=== PATIENT | female | born 1990 | race Caucasian/White ===

== ENCOUNTER → 2019-02-24 12:01 | Outpatient (CLI) | payer OTHER, SELFPAY ==
[2019-02-24 13:19] LABS: Add Manual Diff / Slide Review NO; Basophils Absolute Auto 0 /uL (0-100); Basophils Percent Auto 0.2 % (0-2); Eosinophils Absolute Auto 100 /uL (0-450); Eosinophils Percent Auto 1.2 % (2-4); Hematocrit 41.7 % (36-46); Hemoglobin 14.3 g/dL (12.0-16.0); Lymphocytes Absolute Auto 2100 /uL (1100-4500); Lymphocytes Percent Auto 24.1 % (25-40); Mean Corpuscular HGB Conc 34.2 % (30-36); Mean Corpuscular Hemoglobin 31.8 PG (26-34); Mean Corpuscular Volume 92.8 fL (80-100); Monocytes Absolute Auto 500 /uL (0-900); Monocytes Percent Auto 6.3 % (3-14); Neutrophils Absolute Auto 5900 /uL (1500-7000); Neutrophils Percent Auto 68.2 % (50-75); Platelet Count 274 X10^3/uL (150-400); Red Blood Cell Count 4.49 X10^6/uL (4.0-5.2); Red Cell Distribution Width 12.7 % (11.6-14.8); White Blood Cell Count 8.6 X10^3/uL (4.5-11.0)
[2019-02-24 13:26] LABS: Appearance Urine UA CLEAR; Bilirubin Urine UA NEGATIVE (NEGATIVE); Color Urine UA YELLOW; Glucose Urine UA NEGATIVE (Negative); Ketones Urine UA NEGATIVE (NEGATIVE); Leukocyte Esterase Urine UA TRACE (NEGATIVE); Nitrite Urine UA NEGATIVE (Negative); Occult Blood Urine UA NEGATIVE (Negative); Protein Urine UA NEGATIVE (Negative); Urobilinogen Urine UA 0.2 E.U./dL (0.2); pH Urine UA 5.5 (4.5-8.0)
[2019-02-24 13:49] LABS: Bacteria Urine Few (2-10); RBC Urine 0-1/HPF (0-5/HPF); Squamous Epithelial Cell Urine 1-5 /HPF (0-5/HPF); WBC Urine 1-5/HPF (0-5/HPF)
[2019-02-24 15:11] LABS: Hepatitis B Surface Antigen NEGATIVE s/c (NEGATIVE); Rubella Antibody IgG 52.6 IU/mL (>15)
[2019-02-24 15:30] LABS: HIV 1 and 2 Antibody NEGATIVE (NEGATIVE); Hep C Virus Ab w/Reflex Quant NEGATIVE s/c (NEGATIVE)
[2019-02-26 14:02] LABS: RPR Screen Nonreactive (Nonreactive)
== END ==
PROVIDERS: Visit Provider Obstetrics & Gynecology
DX: Z34.81 Encounter for supervision of other normal pregnancy, first trimester (principal)
CPT/HCPCS: 36415; 80055; 81003; 81015; 86703; 86787; 86803; 86850; 86900; 86901; 87077; 87086

== ENCOUNTER → 2019-04-29 09:14 | Outpatient (CLI) | payer OTHER, SELFPAY ==
--- NOTE | 2019-04-29 09:16 | DI.US.S_ITS ---
PROCEDURE: US OB >= 14 WEEKS FETUS INDICATIONS: ANATOMY SURVEY OUTSIDE/PRIOR DATING DATA: Last menstrual period (LMP): Unknown. LMP-based estimated date of delivery (LARISSA): Unknown. First dating scan (date and location): 02/04/2019. Estimated date of delivery (LARISSA) from first dating scan: 09/13/2019. TECHNIQUE: Real-time scanning was performed of the fetus, with image documentation and biometric measurements. Endovaginal scanning: Not performed COMPARISON: [facility], , OB >= 14 WEEKS FETUS, 03/31/2019, 12:09. FINDINGS: General: A single living intrauterine gestation is present. Presentation: Vertex. Placenta: Placental position is anterior fundal, without previa. Amniotic fluid index: 12.2 cm, normal range is 5-24 cm. heart rate: 149 beats per minute. Maternal cervical canal: 4.4 cm long. Normal lower limit is 2.5 cm. biometrics: Biparietal diameter: 4.4 cm Head circumference: 17 cm Abdominal circumference: 16 cm Femur length: 3.4 cm Estimated gestational age from initial scan: not applicable. Composite gestational age from present scan: 20 weeks and 3/7 days Estimated weight and percentile: 376 gm. 65th percentile. Measurement variability for biometric dating: +/- 7 days from 14 weeks to 15 weeks 6 days gestation, +/- 10 days from 16 weeks to 21 weeks 6 days gestation, +/- 2 weeks from 22 weeks to 27 weeks 6 days gestation, +/- 3 weeks for 28 weeks gestation or later. weight reference: 4500 g or EFW >90/95% is considered macrosomia or large for gestational age. EFW <10% is small for gestational age. EFW 5% or less is considered intra-uterine growth restriction. Anatomic survey: Neuro: Ventricles are non-dilated at less than 10 mm. Cisterna magna is normal at 3-11 mm. Cerebellum is normal in size and morphology. Nuchal skin fold: Normal at less than 6 mm between 14-21 weeks gestational age. Face: Nose and lips, facial profile are normal. Spine: No evidence for spina bifida. Heart: 4-chambered heart is present, with normal ventricular outflow tracts. Diaphragm: Diaphragm is intact. Stomach: Left-sided stomach is present. Kidneys: No hydronephrosis. Normal is less than 5 mm in 2nd trimester, less than 7 mm in 3rd trimester. Cord: 3-vessel cord has orthotopic insertion. Bladder: Normal in size. Extremities: All 4 extremities identified. Other: Maternal ovaries are normal. IMPRESSION: 1. Low living intrauterine at 20 weeks 3/7 days based on today's ultrasound. This is concordant with the first trimester ultrasound. There is expected interval growth. 2. Normal amniotic fluid and placenta. 3. Normal and complete anatomic survey. Dictated by: Wilmer Anders M.D. on 04/29/2019 at 11:02 Approved by: Wilmer Anders M.D. on 04/29/2019 at 11:10
== END ==
PROVIDERS: Visit Provider Obstetrics & Gynecology
DX: Z34.02 Encounter for supervision of normal first pregnancy, second trimester (principal); Z3A.20 20 weeks gestation of pregnancy
CPT/HCPCS: 76811

== ENCOUNTER → 2019-05-27 08:38 | Outpatient (CLI) | payer OTHER, SELFPAY ==
[2019-05-27 10:47] LABS: Hematocrit 35.9 % (36-46); Hemoglobin 12.4 g/dL (12.0-16.0)
[2019-05-27 11:31] LABS: GTT (PREG) 1 Hour PP 50gm Dose 101 mg/dL (76-139)
== END ==
PROVIDERS: Visit Provider Obstetrics & Gynecology
DX: Z34.82 Encounter for supervision of other normal pregnancy, second trimester (principal); Z3A.24 24 weeks gestation of pregnancy
CPT/HCPCS: 36415; 82950; 85014; 85018

== ENCOUNTER → 2019-07-01 12:08 | Outpatient (CLI) | payer OTHER, SELFPAY | PROVIDERS: Visit Provider Obstetrics & Gynecology | DX: R82.90 Unspecified abnormal findings in urine (principal); Z34.83 Encounter for supervision of other normal pregnancy, third trimester; Z3A.29 29 weeks gestation of pregnancy | CPT/HCPCS: 87077; 87086 ==

== ENCOUNTER → 2019-08-19 17:10 | Outpatient (CLI) | payer OTHER, SELFPAY ==
[2019-08-20 14:18] LABS: Strep Grp B PCR POS for Grp B Strep
== END ==
PROVIDERS: Visit Provider Obstetrics & Gynecology
DX: Z34.83 Encounter for supervision of other normal pregnancy, third trimester (principal)
CPT/HCPCS: 87653

== ENCOUNTER 2019-09-20 22:59 | Inpatient (IN) | payer OTHER, SELFPAY ==
[2019-09-20] MEDS: LACTATED RINGERS 1,000 ML 100 ML IV (23:25)
[2019-09-20] MEDS: PENICILLIN G POTASSIUM 5,000,000 UNIT in DEXTROSE 5% IN WATER 250 ML IV (23:47)
--- NOTE | 2019-09-20 23:51 | PM.OBHP.1 ---
OB HPI Date/Time Date of admission: 09/20/19 Date Patient Seen: 09/20/19 Time Patient Seen: 23:52 History of Present Condition Chief complaint: LABOR : 2 Para: 1 Estimated Date of Delivery: 09/13/19 Estimated Gestational Age (weeks): 41 Narrative: Sydney Avina is a 29 year old female 2 para 1 at 41 weeks gestation in active labor History of Present care: good care, initiated at week #, number of visits (12) and pounds weight gain (35) Dating criteria: LMP confirmed by 1st trimester US Ultrasounds: normal 1st trimester US and normal mid trimester US Obstetrical complications: none Medical complications: none Preadmission Labs Blood type: O (+) positive -: Antibody screen: negative, GBS status: positive, HBsAG: negative, HIV: negative and RPR/VDLR: negative -: Chlamydia screen: not detected and Gonorrhea screen: not detected -: Rubella: immune and Varicella: immune HCT: 35.9 HCAB: negative PAP: Normal Urine: No growth 1 hr GTT: 101 Prior (ies) History: 02/14/18 7#12oz 40+5 Evaluation Evaluation Baseline heart rate: 140 Variability: Moderate (11-25) monitor accelerations: Present monitor decelerations: Absent Contraction Frequency (minutes): 3 Uterine Contraction Intensity: Strong/Firm Category of Tracing: I Cervical dilation (cm): 9 Cervical effacement (%): 100 station: 0 PFSH Surgical History (Updated 02/14/18 @ 21:06 by Tricia Campbell MD) H/O oral surgery (Acute) Social History Smoking Status: Never smoker Meds Home Medications and Allergies Home Medications Medication Instructions Recorded Confirmed Type fluconazole 150 mg tablet 150 mg PO ONCE #1 tab 07/07/19 Rx Allergies Allergy/AdvReac Type Severity Reaction Status Date / Time No Known Drug Allergies Allergy Verified 02/14/18 07:37 Exam Vital Signs (past 8 hours): Generally: Moderate distress secondary to contractions Lungs: Clear to auscultation bilaterally Cardiovascular: Regular rate and rhythm Fundal height: 41 cm Estimated weight 8 lb Extremities: 1+ edema, 1+ DTRs Assessment and Plan Assessment and Plan Assessment and Plan narrative: Assessment: 29-year-old 2 para 1 at 41 weeks gestation in active labor entering 2nd stage GBS positive Plan: Will attempt to get in 1 dose of antibiotics before delivery Expected management to spontaneous vaginal delivery Time Spent with Patient Total time spent with greater than 50% in coordination of care (as documented) at patient's floor/unit and/or counseling patient:: 15-24 minutes
[2019-09-21 00:20] LABS: Add Manual Diff / Slide Review NO; Basophils Absolute Auto 0 /uL (0-100); Basophils Percent Auto 0.2 % (0-2); Eosinophils Absolute Auto 100 /uL (0-450); Eosinophils Percent Auto 0.7 % (2-4); Hematocrit 40.4 % (36-46); Hemoglobin 13.8 g/dL (12.0-16.0); Lymphocytes Absolute Auto 2800 /uL (1100-4500); Lymphocytes Percent Auto 21.6 % (25-40); Mean Corpuscular HGB Conc 34.1 % (30-36); Mean Corpuscular Hemoglobin 31.6 PG (26-34); Mean Corpuscular Volume 92.8 fL (80-100); Monocytes Absolute Auto 900 /uL (0-900); Monocytes Percent Auto 7.1 % (3-14); Neutrophils Absolute Auto 9200 /uL (1500-7000); Neutrophils Percent Auto 70.4 % (50-75); Platelet Count 236 X10^3/uL (150-400); Red Blood Cell Count 4.35 X10^6/uL (4.0-5.2); Red Cell Distribution Width 12.5 % (11.6-14.8); White Blood Cell Count 13.1 X10^3/uL (4.5-11.0)
[2019-09-21] MEDS: OXYTOCIN 10 UNIT/ML VIAL 20 UNIT (00:45)
--- NOTE | 2019-09-21 00:48 | P.PCNOB_ITS ---
Labor & Delivery Delivery date: 09/21/19 Cervical ripening method: none Induction method: none Delivery augmentation: rupture of membranes Delivery monitor: external FHT and external uterine Route of delivery: Episiotomy description: None L&D Laceration Description: None Estimated blood loss (mL): 150 Anesthesia type: None Complications: None Narrative: Patient complete and pushed with 2 contractions. At 12:37 a.m., a live male delivered spontaneously over an intact perineum. Nuchal cord x4 were reduced on the perineum. The remainder of the body delivered without difficulty and was placed on mom's abdomen. The cord was double clamped and cut after it stopped pulsing. Cord bloods were obtained. The placenta delivered intact at 12:45 a.m.. Fundus was massaged to firm. 10 units of Pitocin were placed in the IV fluids. One very superficial laceration near the urethra was observed but was not bleeding. No repair was done. Apgars 8 at 1 minute and 9 at 5 minutes. Estimated blood loss 150 cc. No analgesia. . Mom and infant stable to recovery. Plan for aftercare: To routine care
[2019-09-21 02:19] VITALS: BP 124/70
[2019-09-21] MEDS: IBUPROFEN 600 MG TABLET PO ×3 (03:34→15:12)
[2019-09-21] MEDS: DOCUSATE 100 MG CAPSULE PO (09:47)
[2019-09-21] MEDS: PRENATAL VIT,CALC/IRON/FOLIC 1 TABLET 1 TAB PO (09:47)
[2019-09-22] MEDS: IBUPROFEN 600 MG TABLET PO ×2 (05:54→12:22)
[2019-09-22 07:35] LABS: Hematocrit 39.7 % (36-46); Hemoglobin 13.4 g/dL (12.0-16.0)
[2019-09-22] MEDS: PRENATAL VIT,CALC/IRON/FOLIC 1 TABLET 1 TAB PO (09:53)
[2019-09-22] MEDS: DOCUSATE 100 MG CAPSULE PO (09:53)
[2019-09-22 11:53] VITALS: BP 124/70; PULSE 88; RESP 18; TEMP 36.3
== END 2019-09-22 14:45 | disposition home or self-care (01) | DRG 807 ==
LOC: LABOR 09-22 08:55 → AC 09-22 10:21
PROVIDERS: Admitting Provider Obstetrics & Gynecology; Visit Provider Obstetrics & Gynecology
DX: O48.0 Post-term pregnancy (principal); Z37.0 Single live birth; Z3A.41 41 weeks gestation of pregnancy; O99.824 Streptococcus B carrier state complicating childbirth; O69.81X0 Labor and delivery complicated by cord around neck, without compression, not applicable or unspecified; O71.82 Other specified trauma to perineum and vulva
CPT/HCPCS: 36415; 59050; 59400; 85014; 85018; 85025; 86850; 86900; 86901; G0379; J2540; J2590